=== PATIENT | female | born 1995 | race Caucasian/White ===

== ENCOUNTER → 2021-07-20 | Day surgery (SDC) | payer OTHER ==
[~2021-07-20] VITALS: Ht 167.6 cm; Wt 74.0 kg
[~2021-07-20] MED LIST: IV RINGERS,LACTATED 1000ML 1,000 ML IV SCH; KETAMINE HCL IN NACL, ISO-OSM 50 MG/5 ML SYRINGE ONE; PROPOFOL 10 MG/ML (20ML) VIAL. IV ONE
[2021-07-20 09:02] VITALS: BP 127/72
[2021-07-20 10:45] VITALS: BP 132/71
--- NOTE | 2021-07-21 18:22 | PATHOLOGY ---
[facility] Accession Number: [id number] . 01 Material submitted: . PART A: ileum - TERMINAL ILEUM PART B: colon - RIGHT COLON BIOPSY. Modifiers: right PART C: colon - LEFT COLON BIOPSY. Modifiers: left PART D: rectum - RECTAL POLYP BIOPSY . 01 Clinical history: . RECTAL BLEED COLONOSCOPY . 02 Diagnosis: A. Small intestine mucosa, terminal ileum biopsies: - No diagnostic abnormalities. . B. Colonic mucosa, right colon biopsies: - No diagnostic abnormalities. . C. Colonic mucosa, left colon biopsies: - No diagnostic abnormalities. . D. Colorectal biopsies, rectal polyps: - Hyperplastic polyps. (JPM:tete; 07/21/2021) [facility] 07/21/2021 1716 Local . 02 Comment: Sections of the terminal ileum biopsy reveal segments of small intestine mucosa containing focal mucosal-associated lymphoid tissue. Where best oriented, the mucosal villi show no sprue-like changes or significant inflammatory changes. . Sections of the right colon and left colon biopsies appear similar and reveal segments of colonic mucosa containing a few mucosal-associated lymphoid aggregates. There is no evidence of a chronic destructive colitis, lymphocytic colitis, or collagenous colitis. . Sections of the rectal biopsy reveal hyperplastic polyps. There are no adenomatous changes or evidence of malignancy. (JPM:pit; 07/21/2021) . 02 Electronically signed: . Suhail Lemos MD, Pathologist NPI- [id number] . 01 Gross description: . A. The specimen is received in formalin, labeled "[place]ries[place]apnaMary Carmen willams, terminal ileum BX". Received are 2 segments of pale suh tissue ranging in size from 0.4 to 0.5 cm in maximum dimensions. The specimen is submitted entirely in cassette A1. . B. The specimen is received in formalin, labeled "[place], Mary Carmen, right colon BX". Received are 4 segments of pale suh tissue ranging in size from 0.4 to 0.6 cm in maximum dimensions. The specimen is submitted entirely in cassette B1. . C. The specimen is received in formalin, labeled "[place], Mary Carmen, left colon BX". Received are 4 segments of pale suh tissue ranging in size from 0.3 to 0.5 cm in maximum dimensions. The specimen is submitted entirely in cassette C1. . D. The specimen is received in formalin, labeled "[place], Mary Carmen, rectal polyp BX". Received are 2 segments of pale suh tissue ranging in size from 0.3 to 0.5 cm in maximum dimensions. The specimen is submitted entirely in cassette D1.([facility]; 07/20/2021) [facility] 07/20/2021 [facility] Local . 02 Pathologist provided ICD-10: K62.1, K62.5 . 02 CPT . 048073, 423764, 841974, [id number] Specimen Comment: A courtesy copy of this report has been sent to [phone], [phone] Specimen Comment: [id number] Specimen Comment: Report sent to / DR ALARCON Specimen Comment: A duplicate report has been generated due to demographic updates. Performed at: [facility] [address], [place] [id number] MD Gray Beal MD Phone: [phone] Performed at: 02 [facility] [address] [place], [place] [id number] MD Suhail Lemos MD Phone: [phone]
== END | disposition home or self-care (01) ==
LOC: ENDOS 08:37
PROVIDERS: ATTEND Internal Medicine Gastroenterology
DX: K62.5 Hemorrhage of anus and rectum (principal); K62.1 Rectal polyp; K63.89 Other specified diseases of intestine; K64.0 First degree hemorrhoids; Z87.891 Personal history of nicotine dependence; Z79.899 Other long term (current) drug therapy; Z98.890 Other specified postprocedural states
CPT/HCPCS: 45380; 81025; J2704; 88305